=== PATIENT | male | born 1950 ===

== ENCOUNTER 2020-11-15 08:55 | Day surgery (SDC) | payer OTHER ==
[~2020-11-15 08:55] MED LIST: COZAAR100 MG PO; PRILOSEC OTC20 MG PO; SIMVASTATIN20 MG PO; TOPROL XL50 M1 PO
[2020-11-15] MEDS ORDERED: TYLENOL ARTHRI650 MG PO (14:08)
[2020-11-15] MEDS ORDERED: ULTRAM50 MG PO (14:08)
[2020-11-15] MEDS ORDERED: MIRALAX17 GM PO (14:08)
== END 2020-11-15 18:47 | disposition home or self-care (01) ==
LOC: CIR.AMB 08:55
PROVIDERS: ATTEND Surgery
DX: K40.90 Unilateral inguinal hernia, without obstruction or gangrene, not specified as recurrent (principal); Z20.822 Contact with and (suspected) exposure to COVID-19; D17.5 Benign lipomatous neoplasm of intra-abdominal organs